=== PATIENT | male | born 1930 | race Caucasian/White ===

== ENCOUNTER 2017-11-06 15:55 | Inpatient (IN) | payer MEDICARE ==
[~2017-11-06] VITALS: Ht 177.8 cm; Wt 92.3 kg
--- NOTE | 2017-11-06 17:04 | Diagnostic Imaging Report ---
Portable chest x-ray CPT code 98604 INDICATION: Fall COMPARISON: None FINDINGS: Frontal view of the chest obtained at 1433 hours. There is a lucent rectangle-shaped artifact across the right chest and right mediastinum extending off the edge of the image. The cardiac silhouette is mildly enlarged with cardiac bypass changes. Pacemaker wires terminate in the right atrium and right ventricle.. The pulmonary vascular marking are normal. The lungs demonstrate no mass or infiltrate. An azygos lobe is present. The costophrenic angles are sharp. There is no pneumothorax. The osseous structures are intact. There is a fracture of the first median sternotomy wire counting down. IMPRESSION: 1. Compromised study due to artifact across the right hemithorax and mediastinum. 2. Postoperative changes consistent with cardiac bypass. Pacemaker as described above. Pulmonary hyperinflation. No acute pulmonary process. Signed by: Dr. Oz Farrar MD on 11/06/2017 5:01 PM
--- NOTE | 2017-11-06 17:28 | Diagnostic Imaging Report ---
Foot complete CPT code: 24028 Indication: Fall 2 days ago Technique: A.P., oblique and lateral views of the left foot obtained. Comparison: None Findings: The area of pain is not indicated or marked. Calcaneus is intact with prominent posterior and small plantar calcaneal spurs. The midfoot is intact. No evidence of displaced fracture or dislocation involving any of the digits. There are surgical clips along the medial malleolus suggestive of vascular surgery. IMPRESSION: No acute traumatic pathology by x-ray. Signed by: Dr. Oz Farrar MD on 11/06/2017 5:25 PM
--- NOTE | 2017-11-06 17:33 | Diagnostic Imaging Report ---
Foot complete CPT code: 97489 Indication: Fall 2 days ago Technique: A.P., oblique and lateral views of the right foot obtained. Comparison: None Findings: The area of pain is not indicated or marked. Calcaneus is intact with small posterior and plantar spurs. The midfoot is intact. There is a fracture through the tibial corner of the base of the proximal phalanx of the great toe extending to the articular surface. No significant displacement of the fracture fragments. The remainder of the digits are intact. No radiopaque foreign bodies in the soft tissues. There are atherosclerotic calcifications of the arterial structures. IMPRESSION: Fracture of the proximal phalanx of the first digit as described above. Signed by: Dr. Oz Farrar MD on 11/06/2017 5:29 PM
--- NOTE | 2017-11-06 18:04 | Diagnostic Imaging Report ---
Examination: CT BRAIN WITHOUT CONTRAST History: Fall. Head injury. Comparison studies:None Technique: Axial images were obtained from the skull base to the vertex. Coronal and sagittal images reconstructed from the axial data. Intravenous contrast: None Findings: Scalp: No abnormalities. Bones: No fractures, blastic or lytic lesions. Brain sulci: Moderate volume loss for age. Ventricles: No hydrocephalus. Extra-axial space: No abnormalities. Parenchyma: There are confluent areas of hypoattenuation in the periventricular and subcortical white matter, nonspecific. No masses or hemorrhage or acute cortical-based infarct. There is a cortical-based area of hypoattenuation involving the lingual gyrus of the right occipital lobe. Sellar/suprasellar region: No abnormalities. Craniocervical junction: Patent foramen magnum. No Chiari one malformation. Incidental findings: Atherosclerotic calcification of the cavernous and supraclinoid internal carotid arteries. Impression: 1. No acute intracranial abnormalities. 2. Moderate chronic microvascular ischemic change and volume loss. 3. 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 Signed by: Dr. Marie Ferraro M.D. on 11/06/2017 6:01 PM
--- NOTE | 2017-11-06 18:16 | Diagnostic Imaging Report ---
Examination: CT CERVICAL SPINE WITHOUT CONTRAST. HISTORY:Neck pain. Fall. COMPARISON:None. TECHNIQUE: Multidetector helical axial images were obtained without contrast from the foramen magnum to T1. Coronal and sagittal reformatted images were done. Bone and soft tissue windows were evaluated. FINDINGS: Alignment:Straightening of normal lordosis. Vertebrae: Normal height and density. No acute fracture, infection or neoplasm. Disc space heights: Normal height. Caliber of spinal canal: Developmentally normal. Posterior fossa and craniocervical junction: Foramen magnum patent. No Chiari 1 malformation. Soft tissues: No abnormality. Degenerative changes: Severe degenerative narrowing at the C1-C2 joint. Severe right facet arthropathy from C2 through C7 and mild left facet arthropathy at the same levels. Severe right foraminal narrowing at C2-C3, moderate right foraminal narrowing at C3-C4, C4-C5. The cervical levels demonstrate no disc bulge/ herniation or canal stenosis. Additional findings: Fluid in the right azygos fissure. IMPRESSION: 1. No acute abnormalities. 2. Degenerative changes, as above. 3. Fluid within the azygos fissure (right lung). Signed by: Dr. Marie Ferraro M.D. on 11/06/2017 6:12 PM
[2017-11-06 18:17] LABS: BASOPHILS % 0.3 % (0.0-1.0); EOSINOPHILS # (AUTO) 0.1 (0.0-0.4); EOSINOPHILS % 1.1 % (0.0-6.0); HEMATOCRIT 39.9 % (38.2-49.6); HEMOGLOBIN 13.4 g/dL (14.0-18.0); LYMPHOCYTES # (AUTO) 1.8 (1.0-3.2); LYMPHOCYTES % 14.1 % (18.0-39.1); MEAN CORPUSCULAR HEMOGLOBIN 32.2 pg (28-32); MEAN CORPUSCULAR HGB CONC 33.6 g/dL (31-35); MEAN CORPUSCULAR VOLUME 95.9 fL (81-99); MONOCYTES # (AUTO) 0.9 (0.2-0.8); MONOCYTES % 7.2 % (4.4-11.3); NEUTROPHILS # (AUTO) 9.6 (2.1-6.9); NEUTROPHILS % 76.9 % (38.7-80.0); PLATELET COUNT 216 x10e3/uL (140-360); RED BLOOD COUNT 4.16 x10e6/uL (4.3-5.7); RED CELL DISTRIBUTION WIDTH 13.5 % (11.7-14.4)
--- NOTE | 2017-11-06 18:19 | Diagnostic Imaging Report ---
Examination: CT LUMBAR SPINE WITHOUT CONTRAST History: Fall. Back pain. Comparison studies: None Technique: Axial images were obtained through the lumbar spine from L1. Coronal and sagittal reconstructions obtained from the axial data. Intravenous contrast: None Findings: The usual 5 non-rib bearing lumbar vertebral bodies are present. Alignment: Normal lordosis. No scoliosis. Soft tissues: Atherosclerotic calcification of the abdominal aorta and its branches. Paraspinal muscles: Mild fatty atrophy. Sacroiliac joints: Severe degenerative changes. Vertebrae: No fractures, infection or neoplasm. Degenerative changes: L1-L2: Diffuse disc bulge and mild bilateral facet arthropathy. No canal or foraminal stenosis. L2-L3: Diffuse disc bulge, ligamentum flavum thickening and bilateral facet arthropathy result in severe canal stenosis and mild bilateral neural foraminal narrowing . L3-L4: Diffuse disc bulge, ligamentum flavum thickening and bilateral facet arthropathy results in severe canal stenosis and mild left neural foraminal narrowing. No right foraminal narrowing. L4-L5: Diffuse disc bulge, mild ligamentum flavum thickening and bilateral facet arthropathy result in mild bilateral neural foraminal narrowing and mild canal stenosis. L5-S1: Diffuse disc bulge and the lateral facet arthropathy result in mild bilateral neural foraminal narrowing. No canal stenosis IMPRESSION: 1. No acute abnormalities. 2. Degenerative changes, as above. Signed by: Dr. Marie Ferraro M.D. on 11/06/2017 6:16 PM
[2017-11-06 18:25] LABS: KETONES,URINE NEGATIVE (NEGATIVE); LEUKOCYTE ESTERASE ,URINE NEGATIVE (NEGATIVE); NITRITE,URINE NEGATIVE (NEGATIVE); URINE UROBILINOGEN 0.2 mg/dL (0.2 - 1)
[2017-11-06 18:26] LABS: BILIRUBIN,URINE 1+ (NEGATIVE); CLARITY,URINE CLEAR (CLEAR); COLOR,URINE YELLOW (YELLOW); PROTEIN,URINE DIPSTICK TRACE (NEGATIVE)
--- NOTE | 2017-11-06 18:30 | Diagnostic Imaging Report ---
CT Pelvis Without IV Contrast INDICATION: Fall. TECHNIQUE: 5 mm collimation axial images obtained from the iliac crests to the symphysis pubis. No intravenous contrast was administered. COMPARISON: CT lumbar spine performed at the same time. Findings: Bowel: Small Bowel: Visualized portions are normal in diameter with normal wall thickness. Large Bowel: Visualized portions are normal in diameter with normal wall thickness. Appendix: Not visualized and may be absent or collapsed. Bladder: Under distended. No ureteral dilatation. The prostate gland measures 3.6 x 4.9 cm in the axial plane. There are calcifications of the vas deferens.. Lymph Nodes: No lymphadenopathy. No free fluid or fluid collection. There are diffuse atherosclerotic calcifications of the distal aorta and iliac arteries. Bones: Degenerative changes of the spine. No diastases of the pubic symphysis or sacroiliac joints. The hips are intact and normal in morphology. Soft tissues: There is a fat-containing left inguinal hernia. The left gluteus taylor is prominent compared to the right with overlying subcutaneous inflammation. An intramuscular hematoma is suspected. IMPRESSION: 1. Intramuscular hematoma of the left gluteus taylor. No evidence of osseous injury. 2. Intraperitoneal findings as described above. Signed by: Dr. Oz Farrar MD on 11/06/2017 6:27 PM
[2017-11-06 18:45] LABS: ALBUMIN 3.7 g/dL (3.5-5.0); ALBUMIN/GLOBULIN RATIO 0.9 (0.8-2.0); ANION GAP 14.7 mmol/L (8-16); CALCIUM 10.2 mg/dL (8.4-10.2); CREATININE, SERUM 1.77 mg/dL (0.72-1.25); POTASSIUM 3.7 mmol/L (3.5-5.1)
[2017-11-06 18:52] LABS: CREATINE KINASE MB 3.4 ng/mL (0.00-5.00); TROPONIN I 0.057 ng/mL (0-0.300)
[2017-11-06] MEDS ORDERED: ATORVASTATIN CA40 MG PO (19:00)
[2017-11-06] MEDS ORDERED: DESONIDE15 GM TOP (19:00)
[2017-11-06] MEDS ORDERED: KETOCONAZOLE120 ML (19:00)
[2017-11-06] MEDS ORDERED: FLUOCINONIDE-E15 GM (19:00)
[2017-11-06] MEDS ORDERED: ROPINIROLE HC0.25 MG PO (19:00)
[2017-11-06] MEDS ORDERED: CALCIUM CARBON500 MG PO (19:00)
[2017-11-06] MEDS ORDERED: ASPIR 8181 MG PO (19:00)
[2017-11-06] MEDS ORDERED: VITAMIN D400 UNIT PO (19:00)
[2017-11-06] MEDS ORDERED: MELATONIN3 MG PO (19:00)
[2017-11-06] MEDS ORDERED: ARICEPT5 MG PO (19:00)
[2017-11-06] MEDS ORDERED: ALLOPURINOL100 MG PO (19:00)
[2017-11-06] MEDS ORDERED: OMEPRAZOLE40 MG PO (19:00)
[2017-11-06] MEDS ORDERED: BASLE60 GM (19:00)
[2017-11-06] MEDS ORDERED: FUROSEMIDE40 MG PO (19:00)
[2017-11-06] MEDS ORDERED: BUDESONIDE0.5 MG/2 M NEB (19:00)
[2017-11-06] MEDS ORDERED: LORATADINE10 MG PO (19:00)
[2017-11-06] MEDS ORDERED: CLOPIDOGREL75 MG PO (19:00)
[2017-11-06] MEDS ORDERED: POTASSIUM CHLO10 ME1 PO (19:00)
[2017-11-06] MEDS ORDERED: METOPROLOL SUCC50 MG PO (19:00)
[2017-11-06] MEDS ORDERED: MULTI-VITAMIN1 EACH PO (19:00)
[2017-11-06] MEDS ORDERED: MIRTAZAPINE15 MG PO (19:00)
[2017-11-06] MEDS ORDERED: KETOCONAZOLE15 GM (19:00)
[2017-11-06 19:54] LABS: INR 0.95; PROTHROMBIN TIME 13.1 seconds (11.9-14.5)
[2017-11-06 19:55] LABS: PARTIAL THROMBOPLASTIN TIME 31.9 seconds (23.8-35.5)
[2017-11-06] MEDS ORDERED: PIPERACILLIN/TAZO 2.25 GM 50 ML IV SCH (20:15)
[2017-11-06] MEDS ORDERED: TETANUS/DIPHTHERIA TOX ADULT 0.5 ML SYR IM ONE (20:15)
[2017-11-06] MEDS ORDERED: LACTATED RINGER'S 500 ML IV ONE (20:15)
[2017-11-06] MEDS ORDERED: LACTATED RINGER'S 1,000 ML ONE (20:22)
[2017-11-06] MEDS ORDERED: MIRTAZAPINE 15 MG TAB PO SCH (21:00)
[2017-11-06] MEDS: MUPIROCIN 2% OINT 22 GM TUBE TOP SCH (21:08)
[2017-11-06] MEDS ORDERED: MORPHINE SULFATE 2 MG/ML SYR IV PRN (21:30)
[2017-11-06] MEDS ORDERED: ONDANSETRON HCL INJ 2 MG/ML VIAL IV PRN (21:30)
[2017-11-06] MEDS ORDERED: DEXTROSE 50% SYRINGE 50 ML IV PRN (22:15)
[2017-11-06 22:16] VITALS: BP 139/63
[2017-11-06 22:35] VITALS: BP 139/63
[2017-11-06] MEDS: SOD CHL 0.45%/POT CHL 20MEQ 1,000 ML IV SCH (22:55)
[2017-11-06] MEDS: ATORVASTATIN 40 MG TAB PO SCH (23:23)
[2017-11-06] MEDS: MELATONIN 3 MG TAB PO SCH (23:23)
[2017-11-06] MEDS: DONEPEZIL HCL 5 MG TAB PO SCH (23:23)
[2017-11-06] MEDS: ROPINIROLE HCL 0.25 MG TAB PO SCH (23:23)
[2017-11-07] VITALS: BP 130/67
[2017-11-07] MEDS: PIPERACILLIN/TAZO 2.25 GM 50 ML IV SCH ×4 (02:25→18:25)
[2017-11-07] MEDS ORDERED: CALCIUM CITRAT200 MG PO (02:47)
[2017-11-07] MEDS ORDERED: ALBUTEROL0.63 MG/3 (02:47)
[2017-11-07] MEDS ORDERED: TRIAMCINOLONE A15 G2 (02:47)
[2017-11-07] MEDS ORDERED: SPIRIVA18 MCG INH (02:47)
[2017-11-07 04:00] VITALS: BP 150/67
[2017-11-07 07:03] LABS: BASOPHILS % 0.3 % (0.0-1.0); EOSINOPHILS # (AUTO) 0.3 (0.0-0.4); EOSINOPHILS % 2.6 % (0.0-6.0); HEMATOCRIT 36.1 % (38.2-49.6); LYMPHOCYTES # (AUTO) 1.6 (1.0-3.2); LYMPHOCYTES % 15.3 % (18.0-39.1); MEAN CORPUSCULAR HEMOGLOBIN 32.2 pg (28-32); MEAN CORPUSCULAR HGB CONC 33.2 g/dL (31-35); MEAN CORPUSCULAR VOLUME 96.8 fL (81-99); MONOCYTES # (AUTO) 0.9 (0.2-0.8); MONOCYTES % 8.2 % (4.4-11.3); NEUTROPHILS # (AUTO) 7.6 (2.1-6.9); NEUTROPHILS % 73.3 % (38.7-80.0); PLATELET COUNT 193 x10e3/uL (140-360); RED BLOOD COUNT 3.73 x10e6/uL (4.3-5.7); RED CELL DISTRIBUTION WIDTH 13.5 % (11.7-14.4)
[2017-11-07 07:19] LABS: ALBUMIN 3.1 g/dL (3.5-5.0); ALBUMIN/GLOBULIN RATIO 0.8 (0.8-2.0); ANION GAP 11.5 mmol/L (8-16); CALCIUM 9.5 mg/dL (8.4-10.2); CHOL/HDL RATIO 3.7 (3.9-4.7); CREATININE, SERUM 1.52 mg/dL (0.72-1.25); POTASSIUM 3.5 mmol/L (3.5-5.1)
[2017-11-07 07:48] LABS: TROPONIN I 0.031 ng/mL (0-0.300)
[2017-11-07 08:00] VITALS: BP 127/62
[2017-11-07] MEDS: INSULIN REGULAR, HUMAN 100 UNIT/1 ML 3ML VIAL SQ SCH ×4 (08:00→21:00)
[2017-11-07] MEDS: FAMOTIDINE 20 MG/2 ML VIAL IV SCH ×2 (08:39→21:18)
[2017-11-07] MEDS: MUPIROCIN 2% OINT 22 GM TUBE TOP SCH ×2 (09:00→17:00)
[2017-11-07] MEDS ORDERED: ALBUTEROL SULF 0.083% NEB SOLN 3 ML NEB NEB PRN (09:00)
[2017-11-07] MEDS: SOD CHL 0.45%/POT CHL 20MEQ 1,000 ML IV SCH (10:50)
[2017-11-07] MEDS: ALBUTEROL SULF 0.083% NEB SOLN 3 ML NEB NEB SCH ×3 (11:00→19:20)
[2017-11-07] MEDS ORDERED: VANCOMYCIN 1GM/NS 250 ML 250 ML IV ONE (11:00)
[2017-11-07 12:00] VITALS: BP 131/59
--- NOTE | 2017-11-07 12:27 | History and Physical ---
Patient admitted through the emergency room. Apparently had nausea, vomiting and diarrhea related to poorly cooked potatoes in a stew. Fell at home and apparently brought a bookcase on top or credenza on top of him. Family thinks he was on the floor for approximately 3 days. He has a history of dementia, history of coronary disease, history of COPD, recently on home oxygen, bypass surgery 23 years ago, history of coronary stents and a history of a pacemaker. Family history is positive for diabetes and cancer of the lung. He has had cataract surgery in addition to his bypass surgery. He was born in [place]. Worked installing [employer]. He is an ex-smoker. Drinks on occasion. CLAIMS HE IS ALLERGIC TO FLU VACCINE AND BRETYLIUM. According to record, his home medications include albuterol, allopurinol, aspirin, Lipitor, budesonide, calcium, vitamin D, Plavix, Aricept, steroid cream, Lasix, ketoconazole shampoo, loratadine, melatonin, metoprolol, Remeron, omeprazole, potassium, ropinirole, and Spiriva as well as his supplemental oxygen. PHYSICAL EXAMINATION VITAL SIGNS: Temperature 96.9, pulse 70, respirations 15, blood pressure 150/ , O2 saturation 97%. HEAD: Normocephalic, atraumatic. EYES: There is bruising left eyelid. LUNGS: Diminished breath sounds. HEART: Regular rhythm. ABDOMEN: Nontender. EXTREMITIES: Wound great toe with laceration and bruising 2nd toe and 3rd toe left foot. Swelling of the toe. Family says this is improved. Request cardiology opinion and renal opinion, orthopedic opinion. He is currently on empiric antibiotics. We will add 1 dose of vancomycin. Renal failure is most likely due to the dehydration. CPK is only moderately elevated. Glucose was slightly elevated. Uric acid 9.6. CPK 624. Continue therapy for dementia. Will increase dose of allopurinol. Thank you for this kind referral. Job#: [id number] JOSEPH
[2017-11-07] MEDS: CLOPIDOGREL BISULFATE 75 MG TAB PO SCH (15:08)
[2017-11-07] MEDS: LORATADINE 10 MG TAB PO SCH (15:09)
[2017-11-07] MEDS: METOPROLOL SUCCINATE 50 MG TAB XL PO SCH (15:09)
[2017-11-07] MEDS: TIOTROPIUM 18 MCG INH POWDER INH SCH (15:25)
[2017-11-07 16:00] VITALS: BP 101/49
[2017-11-07 16:10] LABS: CREATINE KINASE MB 1.5 ng/mL (0.00-5.00); TROPONIN I 0.033 ng/mL (0-0.300)
--- NOTE | 2017-11-07 16:56 | Consultation ---
DATE OF CONSULTATION: November 07, 2017 CARDIOLOGY CONSULTATION ATTENDING PHYSICIAN: Dr. Prabhakar. Thank you so much for asking me to see this nice man in consultation. Mr. nAne is an elderly 87-year-old man who reports that he fell at home, trying to support himself by holding on to a bookcase, and evidently it trapped him under the bookcase and he lay on the floor for 2 days. He reports "almost froze to ." HISTORY OF PRESENT ILLNESS: He denies any syncope, chest pain or palpitations. PAST MEDICAL HISTORY: Long and complex with coronary artery bypass graft surgery about 20 years or so ago. He has had a permanent pacemaker implant and reports that it has been replaced 2 more times. He reports he also has had some coronary stenting since his bypass. He has COPD. He has an extensive list of medications. Please see the chart. REVIEW OF SYSTEMS: GENERAL: He is a relatively poor historian and evidently has some element of dementia. ENDOCRINE: He has diabetes. PERSONAL AND SOCIAL HISTORY: Has remote smoking, and he lives alone. PHYSICAL EXAMINATION: GENERAL: At this time shows a pleasant elderly white man who is alert, responsive, relatively oriented. Family sitting at bedside. VITALS: Afebrile. Blood pressure 127/62. Pulse is 70 and regular. HEENT: Shows left periorbital purpura. NECK: No jugular venous distention. THORAX: A healed midline sternotomy. Heart sounds S1 and S2 are equal. No distinct murmur. Left subclavian pacemaker site is intact. Lungs relatively clear. ABDOMEN: Protuberant. EXTREMITIES: Show the right great toe purpura and bandage. PERTINENT LABORATORY DATA: Show troponins normal times 2. Initial serum creatinine is 1.77 with the repeat value being 1.5. CT of the head shows right chronic posterior infarct. EKG shows ventricular pacing, possibly atrial fibrillation. X-rays of bones and CAT scans show a hematoma in the left gluteus taylor, a fracture of the right proximal phalanx on the right foot, and lumbar spine shows multiple disk bulges and stenoses. ASSESSMENT: 1. Fall with fracture of the right foot. 2. Coronary disease clinically stable after coronary bypass graft surgery and stenting. 3. Pacemaker function is intact. 4. Renal insufficiency. 5. Diabetes. PLAN: Agree with supportive care. Will limit my investigations as he is followed regularly at the [facility]. Thank you for asking me to see him in consultation. Job#: [id number] EV cc:MD SAMEER COBIAN M.D. JIRIES DAHU, MD
[2017-11-07] MEDS: ENOXAPARIN SOD INJ 40 MG/0.4 ML SYR SC SCH (17:25)
[2017-11-07] MEDS: KETOCONAZOLE 2% CREAM/15 GM TUBE TOP SCH ×2 (18:56→22:44)
[2017-11-07] MEDS: BUDESONIDE 0.5MG/2 ML NEB NEB SCH (19:20)
[2017-11-07 20:00] VITALS: BP 114/62
[2017-11-07] MEDS: MELATONIN 3 MG TAB PO SCH (21:18)
[2017-11-07] MEDS: ATORVASTATIN 40 MG TAB PO SCH (21:18)
[2017-11-07] MEDS: DONEPEZIL HCL 5 MG TAB PO SCH (21:18)
[2017-11-07] MEDS: MIRTAZAPINE 15 MG TAB PO SCH (21:18)
[2017-11-07] MEDS: ROPINIROLE HCL 0.25 MG TAB PO SCH (21:20)
--- NOTE | 2017-11-07 22:25 | Consultation ---
DATE OF CONSULTATION: DATE OF : 1930 NEPHROLOGY CONSULTATION REASON FOR CONSULTATION: Acute kidney injury likely due to underlying dehydration. HPI: This is an 87-year-old male, who came in with found to be down on the ground in which he lives alone and family member found him on the ground and has a fracture of the proximal phalanx of the 1st digit of the big toe. Patient reports that he tripped on the ground 2 days ago. Patient was apparently down on the ground for 2 days and has not eaten or has not drank any fluids at home. Family, eventually, found him on the ground and brought him here to the ER for further evaluation. Patient does have a discoloration of the right big toe, as well as he has a bruise on his left upper eye. Patient denies any chest pain, palpitation, nausea, vomiting or any other complaints, when this occurred. Patient seen and evaluated at bedside on the medical floor. Currently doing well with no other complaints. Nephrology was consulted for underlying acute kidney injury likely due to dehydration. Patient denies any herbal supplements, [id number] medications including NSAIDs at home. He denies any family history of renal failure or any kidney disease, as well as no kidney stones. Denies any chronic UTI and denies any BPH. REVIEW OF SYSTEMS: Pertinent positives: Recent fall, fracture of the right big toe. Pertinent negatives: Denies any chest pain, palpitations, nausea, vomiting, diarrhea, dysuria, hematuria, frequency, urgency, lightheadedness, dizziness, abdominal pain, headache, shortness of breath or any other complaint. The rest of the 14-point review of systems has been reviewed with the patient and are negative. ALLERGIES 1. INFLUENZA VACCINE. 2. BRETYLIUM. HOME MEDICATIONS: He takes 1. Albuterol. 2. Allopurinol 100 mg daily. 3. Aspirin 81 mg daily. 4. Lipitor 40 mg daily. 5. Budesonide inhaler twice daily. 6. Calcium citrate 200 mg daily. 7. Folic acid 400 units capsules daily. 8. Plavix 75 mg daily. 9. Aricept 10 mg daily. 10. Furosemide 80 mg daily. 11. Loratadine 10 mg daily. 12. Melatonin 6 mg p.o. at bedtime. 13. Metoprolol ER 50 mg one tab daily. 14. Mirtazapine 15 mg daily. 15. Omeprazole 20 mg daily. 16. Spiriva 18 mcg inhaled daily. 17. Ropinirole 0.5 mg at bedtime. PAST MEDICAL HISTORY 1. He has restless legs syndrome. 2. Hypertension. 3. Hyperlipidemia. 4. Diabetes. PAST SURGICAL HISTORY 1. Cataract surgery. 2. Bypass surgery. FAMILY HISTORY: Diabetes and cancer of the lung. SOCIAL HISTORY: Ex-smoker. Drinks occasionally. 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 VITAL SIGNS: Temperature is 96, pulse 69, respiratory rate is 18, blood pressure is 131/59. His pulse ox is 100% on 2 L nasal cannula. LAB FINDINGS: Sodium 137, potassium 3.5, chloride 100, bicarb 29, anion gap of 11.5, BUN is 33, creatinine is 1.5, on admission is 1.77. His glucose is 145. T-bili is 1.2, AST 68, ALT is 33. His troponin is negative. CK is 343, on admission was 627. His albumin is 3.1. LDL is 82. His urinalysis is negative. His microbiology, urine culture pending. IMAGING STUDIES: CT of the pelvis showed just some intramuscular hematoma of the left gluteus taylor, but there is no evidence of any kind of fracture seen. Lumbar CT, no acute abnormality. Foot x-ray negative. Foot x-ray of the right foot showed fracture of the proximal phalanx and the 1st digit. Chest x-ray, no acute pulmonary process. CT of cervical spine was negative for any acute findings and then, CT of brain negative for any acute findings. PHYSICAL EXAM GENERAL: Not in acute distress. Alert, oriented times 3. Cooperative on exam. HEENT: Head normocephalic, atraumatic. Eyes: Pupils are equal, round, and reactive to light bilaterally. Extraocular movements intact bilaterally. NECK: Supple with good range of motion. Throat: No evidence of any erythema or exudate in the posterior pharynx. Has poor dentition. PULMONARY: Clear to auscultation bilaterally. No wheezing. No rales and rhonchi. No crackles appreciated. CARDIOVASCULAR: Positive S1/S2. No murmurs, rubs or gallops appreciated. ABDOMEN: Soft, nondistended, nontender to palpation. Bowel sounds present. MUSCULOSKELETAL: Strength is 5/5 throughout. No evidence of any musculoskeletal deficit on examination. No weakness appreciated. NEUROLOGIC: Cranial nerves II through XII grossly intact. No neurological deficit on exam. SKIN: Intact. Warm to touch. Good cap refill. PSYCHIATRIC: Normal affect and mood. EXTREMITIES: He has fracture of the right big toe. IMPRESSIONS 1. Acute kidney injury likely prerenal azotemia from dehydration. 2. Rhabdomyolysis. 3. Right big toe fracture. 4. History of coronary stents with history of pacemaker. PLAN: At this time, continue with IV fluid hydration. CK has improved. Repeat CK in the morning. Will get renal ultrasound to evaluate for kidney size and chronicity of disease. No need for any kind of electrolyte at this time. It seems the patient also has underlying chronic disease at baseline. Will continue to follow. Thank you very much for this consultation. Will continue to follow with you. Job#: [id number] CQ
[2017-11-07] MEDS ORDERED: HALOPERIDOL 5 MG TAB PO PRN (23:15)
[2017-11-07] MEDS ORDERED: HALOPERIDOL 1 MG TAB PO ONE (23:47)
[2017-11-08] MEDS: SOD CHL 0.45%/POT CHL 20MEQ 1,000 ML IV SCH (00:10)
[2017-11-08] MEDS: TIOTROPIUM 18 MCG INH POWDER INH SCH (06:00)
[2017-11-08] MEDS: PIPERACILLIN/TAZO 2.25 GM 50 ML IV SCH ×3 (06:00→12:00)
[2017-11-08] MEDS: ALBUTEROL SULF 0.083% NEB SOLN 3 ML NEB NEB SCH ×3 (07:00→19:45)
[2017-11-08] MEDS: BUDESONIDE 0.5MG/2 ML NEB NEB SCH ×2 (07:00→19:45)
[2017-11-08] MEDS: INSULIN REGULAR, HUMAN 100 UNIT/1 ML 3ML VIAL SQ SCH ×4 (07:30→21:00)
[2017-11-08] MEDS: MUPIROCIN 2% OINT 22 GM TUBE TOP SCH ×3 (09:00→16:45)
[2017-11-08] MEDS: FAMOTIDINE 20 MG/2 ML VIAL IV SCH (09:00)
[2017-11-08] MEDS ORDERED: ALLOPURINOL 100 MG TAB PO SCH ×2 (09:00)
[2017-11-08] MEDS: METOPROLOL SUCCINATE 50 MG TAB XL PO SCH (09:26)
[2017-11-08] MEDS: ASPIRIN 81 MG CHEW TAB PO SCH (09:26)
[2017-11-08] MEDS: LORATADINE 10 MG TAB PO SCH (09:26)
[2017-11-08] MEDS: POTASSIUM CHLORIDE 10 MEQ TABCR PO SCH (09:26)
[2017-11-08] MEDS: CLOPIDOGREL BISULFATE 75 MG TAB PO SCH (09:26)
[2017-11-08] MEDS: FUROSEMIDE 40 MG TAB PO SCH (09:26)
[2017-11-08] MEDS: MULTIVITAMINS/MINERALS TAB PO SCH (09:26)
[2017-11-08] MEDS: CHOLECALCIFEROL 400 UNIT TAB PO SCH (09:27)
[2017-11-08] MEDS: PANTOPRAZOLE SOD 40 MG TABEC PO SCH (09:27)
[2017-11-08 10:03] LABS: BASOPHILS % 0.4 % (0.0-1.0); EOSINOPHILS # (AUTO) 0.4 (0.0-0.4); EOSINOPHILS % 4.8 % (0.0-6.0); HEMATOCRIT 33.6 % (38.2-49.6); HEMOGLOBIN 11.2 g/dL (14.0-18.0); LYMPHOCYTES # (AUTO) 1.4 (1.0-3.2); LYMPHOCYTES % 18.3 % (18.0-39.1); MEAN CORPUSCULAR HEMOGLOBIN 32.5 pg (28-32); MEAN CORPUSCULAR HGB CONC 33.3 g/dL (31-35); MEAN CORPUSCULAR VOLUME 97.4 fL (81-99); MONOCYTES # (AUTO) 0.5 (0.2-0.8); MONOCYTES % 6.3 % (4.4-11.3); NEUTROPHILS # (AUTO) 5.2 (2.1-6.9); PLATELET COUNT 178 x10e3/uL (140-360); RED BLOOD COUNT 3.45 x10e6/uL (4.3-5.7); RED CELL DISTRIBUTION WIDTH 13.6 % (11.7-14.4)
[2017-11-08 10:28] LABS: ANION GAP 12.4 mmol/L (8-16); CALCIUM 9.2 mg/dL (8.4-10.2); CREATININE, SERUM 1.4 mg/dL (0.72-1.25); POTASSIUM 3.4 mmol/L (3.5-5.1)
--- NOTE | 2017-11-08 14:22 | Diagnostic Imaging Report ---
PROCEDURE:US RETROPERITONEAL ( KIDNEY ). COMPARISON:None. INDICATIONS:Urethral Stricture TECHNIQUE: Richard-scale and color sonographic images of the bilateral kidneys and bladder where obtained in transverse and longitudinal planes. FINDINGS: RIGHT KIDNEY: 9.6 cm in length, cortical thickness 1.7 cm. Cysts: None Solid masses: None Stones: None Hydronephrosis: None Echogenicity: Normal renal cortical echogenicity. LEFT KIDNEY: 11 cm in length, cortical thickness 2.1 cm. Cysts: None Solid masses: None Stones: None Hydronephrosis: None Echogenicity: Normal renal cortical echogenicity. Bladder: Unremarkable. Right and left ureteral jets are identified. Prostate: 3.2 x 3.1 x 5.3 cm, estimated volume 26 cc CONCLUSION: Unremarkable sonographic appearance of the kidneys. Dictated by: Brenton Snyder M.D. on 11/08/2017 at 14:30 Electronically approved by: Brenton Snyder M.D. on 11/08/2017 at 14:30
[2017-11-08] MEDS ORDERED: AMOXICILLIN875 MG PO (14:34)
[2017-11-08] MEDS ORDERED: POTASSIUM CHLORIDE 20 MEQ TAB CR PO PRN (14:45)
[2017-11-08 16:00] VITALS: BP 147/67
[2017-11-08] MEDS: BALSAM PERU/CASTOR OIL 60 GM OINT...G. TP SCH (17:00)
[2017-11-08] MEDS: ENOXAPARIN SOD INJ 40 MG/0.4 ML SYR SC SCH (17:28)
[2017-11-08 20:00] VITALS: BP 144/64
[2017-11-08] MEDS: DONEPEZIL HCL 5 MG TAB PO SCH (21:04)
[2017-11-08] MEDS: AMOXICILLIN/CLAVULANATE K 875 MG TAB PO SCH (21:04)
[2017-11-08] MEDS: ATORVASTATIN 40 MG TAB PO SCH (21:05)
[2017-11-08] MEDS: ROPINIROLE HCL 0.25 MG TAB PO SCH (21:05)
[2017-11-08] MEDS: MELATONIN 3 MG TAB PO SCH (21:05)
[2017-11-08] MEDS: MIRTAZAPINE 15 MG TAB PO SCH (21:05)
[2017-11-08] MEDS: FAMOTIDINE 20 MG TAB PO SCH (22:38)
[2017-11-09] VITALS: BP 153/68
[2017-11-09] MEDS: TIOTROPIUM 18 MCG INH POWDER INH SCH (06:00)
[2017-11-09] MEDS: ALBUTEROL SULF 0.083% NEB SOLN 3 ML NEB NEB SCH ×3 (07:21→15:00)
[2017-11-09] MEDS: BUDESONIDE 0.5MG/2 ML NEB NEB SCH (07:30)
[2017-11-09 08:23] VITALS: BP 143/79
[2017-11-09] MEDS ORDERED: ALLOPURINOL 300 MG TAB PO SCH (09:00)
[2017-11-09] MEDS: INSULIN REGULAR, HUMAN 100 UNIT/1 ML 3ML VIAL SQ SCH ×3 (09:30→15:54)
[2017-11-09] MEDS: CLOPIDOGREL BISULFATE 75 MG TAB PO SCH (09:33)
[2017-11-09] MEDS: FUROSEMIDE 40 MG TAB PO SCH (09:33)
[2017-11-09] MEDS: LORATADINE 10 MG TAB PO SCH (09:33)
[2017-11-09] MEDS: ASPIRIN 81 MG CHEW TAB PO SCH (09:33)
[2017-11-09] MEDS: POTASSIUM CHLORIDE 10 MEQ TABCR PO SCH (09:34)
[2017-11-09] MEDS: CHOLECALCIFEROL 400 UNIT TAB PO SCH (09:34)
[2017-11-09] MEDS: PANTOPRAZOLE SOD 40 MG TABEC PO SCH (09:34)
[2017-11-09] MEDS: MULTIVITAMINS/MINERALS TAB PO SCH (09:34)
[2017-11-09] MEDS: METOPROLOL SUCCINATE 50 MG TAB XL PO SCH (09:34)
[2017-11-09] MEDS: FAMOTIDINE 20 MG TAB PO SCH ×2 (09:35→16:12)
[2017-11-09] MEDS ORDERED: POTASSIUM CHLORIDE 20 MEQ TAB CR PO STA (10:20)
--- NOTE | 2017-11-09 10:47 | Discharge Summary ---
Patient usually follows at the [facility] and was admitted to Dr. Prabhakar through the emergency room with a history of fall. Apparently, a credenza fell on him. He laid on the floor for approximately 3 days. Fractured the right great toe and bruising of the eyelid and some minor lacerations to 2 toes on the left foot. He has a history of coronary disease with bypass surgery, history of diabetes, history of smoking, history of alcohol use on occasion. He quit smoking at this time. He was treated with Zosyn for superficial skin infection with 1 dose of vancomycin. He was treated with allopurinol. The dose was increased because of uric acid level of 9.6. SNF was recommended. The patient's family declined. They said that they will take him home and supervise him 24 hours. His white count fell to 12.46. There is apparent anemia of chronic disease. Renal function was compromised. Creatinine of 1.4. The patient has a walker. He will need a bedside commode. Home health was declined. He was able to ambulate with his walker. His balance is poor. He is discharged to the care of the family. He has home oxygen and is encouraged to use this. He declined IV therapy. He was placed on: 1. Augmentin 500 mg b.i.d. 2. Allopurinol 300 mg at night. 3. Aspirin 81 mg. 4. Lipitor 40 mg. 5. Continue Pulmicort. 6. Vitamin D. 7. Plavix. 8. Aricept. 9. Pepcid. 10. Lasix 80 mg. 11. Ketoconazole shampoo. 12. Claritin. 13. Melatonin at night. 14. Metoprolol 50 mg a day. 15. Remeron 15 at night. 16. Potassium 10. 17. Requip 0.5. 18. Spiriva once a day. 19. ADA diet. JAYY FERMIN MD Job#: [id number] [place]
[2017-11-09] MEDS ORDERED: ACETAMINOPHEN 325 MG TAB PO PRN (11:00)
[2017-11-09] MEDS: AMOXICILLIN/CLAVULANATE K 875 MG TAB PO SCH (11:27)
[2017-11-09 11:53] VITALS: BP 164/72
[2017-11-09] MEDS: MUPIROCIN 2% OINT 22 GM TUBE TOP SCH (12:23)
[2017-11-09] MEDS: BALSAM PERU/CASTOR OIL 60 GM OINT...G. TP SCH ×2 (12:23→16:12)
[2017-11-09] MEDS: ENOXAPARIN SOD INJ 40 MG/0.4 ML SYR SC SCH (16:12)
[2017-11-09 16:25] VITALS: BP 158/70
[2017-11-09] MEDS ORDERED: FAMOTIDINE 20 MG TAB PO SCH (21:00)
[2017-11-10] MEDS ORDERED: MUPIROCIN 2% OINT 22 GM TUBE TOP SCH (02:00)
== END 2017-11-09 18:03 | disposition home or self-care (01) | DRG 558 ==
LOC: ER 15:55 → ERHOLD 21:41 → MED/SURG2 21:49
PROVIDERS: ADMIT Internal Medicine; ATTEND Internal Medicine
DX: M62.82 Rhabdomyolysis (principal); N17.9 Acute kidney failure, unspecified; L89.152 Pressure ulcer of sacral region, stage 2; E11.22 Type 2 diabetes mellitus with diabetic chronic kidney disease; Z99.81 Dependence on supplemental oxygen; D63.8 Anemia in other chronic diseases classified elsewhere; E86.0 Dehydration; S92.411A Displaced fracture of proximal phalanx of right great toe, initial encounter for closed fracture; F03.90 Unspecified dementia, unspecified severity, without behavioral disturbance, psychotic disturbance, mood disturbance, and anxiety; I12.9 Hypertensive chronic kidney disease with stage 1 through stage 4 chronic kidney disease, or unspecified chronic kidney disease; I25.10 Atherosclerotic heart disease of native coronary artery without angina pectoris; J44.9 Chronic obstructive pulmonary disease, unspecified; M10.9 Gout, unspecified; K21.9 Gastro-esophageal reflux disease without esophagitis; N18.9 Chronic kidney disease, unspecified; Z95.0 Presence of cardiac pacemaker; Z95.1 Presence of aortocoronary bypass graft; Z95.5 Presence of coronary angioplasty implant and graft; Y92.009 Unspecified place in unspecified non-institutional (private) residence as the place of occurrence of the external cause; W19.XXXA Unspecified fall, initial encounter; Z87.891 Personal history of nicotine dependence; Z79.4 Long term (current) use of insulin
CPT/HCPCS: 36415; 70450; 71010; 72125; 72131; 72192; 76770; 80048; 80053; 80061; 81001; 82550; 82553; 82948; 84484; 84550; 85025; 85610; 85730; 87086; 90714; 93005; 96361; 96365; 97139; 99284; J1650; J2270; J2543; J3370; J7120

== ENCOUNTER → 2017-12-01 | Outpatient (CLI) | payer OTHER ==
[~2017-12-01] MED LIST: ALBUTEROL0.63 MG/3; ALLOPURINOL100 MG PO; AMOXICILLIN875 MG PO; ARICEPT5 MG PO; ASPIR 8181 MG PO; ATORVASTATIN CA40 MG PO; BASLE60 GM; BUDESONIDE0.5 MG/2 M NEB; CALCIUM CARBON500 MG PO; CALCIUM CITRAT200 MG PO; CLOPIDOGREL75 MG PO; DESONIDE15 GM TOP; FLUOCINONIDE-E15 GM; FUROSEMIDE40 MG PO; KETOCONAZOLE120 ML; KETOCONAZOLE15 GM; LORATADINE10 MG PO; MELATONIN3 MG PO; METOPROLOL SUCC50 MG PO; MIRTAZAPINE15 MG PO; MULTI-VITAMIN1 EACH PO; OMEPRAZOLE40 MG PO; POTASSIUM CHLO10 ME1 PO; ROPINIROLE HC0.25 MG PO; SPIRIVA18 MCG INH; TRIAMCINOLONE A15 G2; VITAMIN D400 UNIT PO
[2017-12-01 15:57] LABS: ANION GAP 16.3 mmol/L (8-16); CALCIUM 9.5 mg/dL (8.4-10.2); CREATININE, SERUM 1.22 mg/dL (0.72-1.25); POTASSIUM 4.3 mmol/L (3.5-5.1)
[2017-12-01 16:00] LABS: BASOPHILS % 0.4 % (0.0-1.0); EOSINOPHILS # (AUTO) 0.4 (0.0-0.4); EOSINOPHILS % 4.4 % (0.0-6.0); HEMATOCRIT 40.9 % (38.2-49.6); HEMOGLOBIN 13.5 g/dL (14.0-18.0); LYMPHOCYTES # (AUTO) 1.6 (1.0-3.2); LYMPHOCYTES % 20.1 % (18.0-39.1); MEAN CORPUSCULAR HEMOGLOBIN 32.8 pg (28-32); MEAN CORPUSCULAR VOLUME 99.5 fL (81-99); MONOCYTES # (AUTO) 0.5 (0.2-0.8); MONOCYTES % 6.5 % (4.4-11.3); NEUTROPHILS # (AUTO) 5.5 (2.1-6.9); NEUTROPHILS % 68.4 % (38.7-80.0); PLATELET COUNT 245 x10e3/uL (140-360); RED BLOOD COUNT 4.11 x10e6/uL (4.3-5.7); RED CELL DISTRIBUTION WIDTH 14.2 % (11.7-14.4)
== END ==
LOC: NPA 12:00
DX: Z02.89 Encounter for other administrative examinations (principal)
CPT/HCPCS: 36415; 80048; 85025

== ENCOUNTER → 2017-12-12 | Outpatient (CLI) | payer OTHER ==
[2017-12-12 17:39] LABS: BASOPHILS % 0.3 % (0.0-1.0); EOSINOPHILS % 0.3 % (0.0-6.0); HEMATOCRIT 29.6 % (38.2-49.6); HEMOGLOBIN 9.4 g/dL (14.0-18.0); LYMPHOCYTES # (AUTO) 1.3 (1.0-3.2); LYMPHOCYTES % 11.6 % (18.0-39.1); MEAN CORPUSCULAR HEMOGLOBIN 27.7 pg (28-32); MEAN CORPUSCULAR HGB CONC 31.8 g/dL (31-35); MEAN CORPUSCULAR VOLUME 87.3 fL (81-99); MONOCYTES # (AUTO) 0.9 (0.2-0.8); MONOCYTES % 8.3 % (4.4-11.3); NEUTROPHILS # (AUTO) 8.8 (2.1-6.9); NEUTROPHILS % 79.1 % (38.7-80.0); PLATELET COUNT 355 x10e3/uL (140-360); RED BLOOD COUNT 3.39 x10e6/uL (4.3-5.7); RED CELL DISTRIBUTION WIDTH 16.1 % (11.7-14.4)
== END ==
LOC: NPA 11:30
DX: Z02.89 Encounter for other administrative examinations (principal)
CPT/HCPCS: 36415; 85025

== ENCOUNTER 2017-12-15 13:52 | Emergency (ER) | payer MEDICARE ==
[~2017-12-15] VITALS: Ht 177.8 cm; Wt 92.1 kg
--- OUTSIDE RECORDS SUMMARY | 2017-12-15 13:55 | XMS REPORT ---
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 Allergies, Adverse Reactions, Alerts This patient has no known allergies or adverse reactions. Medications This patient has no known medications. Results Test Description Test Time Test Comments Text Results Atomic Results Result Comments US RENAL RETROPERITONEAL COMP [place] [address] Patient Name: JHOAN JAY MR #: [id number] : 1930 Age/Sex: 87/M Req #: [id number] Adm Physician: SAMEER MARTINES MD Ordered by : MILTON LITTLE MD Report #: [id number] Location: MED/SURG2 Room/Bed: [facility] Procedure: [id number] US/US RENAL RETROPERITONEAL COMP Exam Date: Exam Time: REPORT STATUS: Signed PROCEDURE: US RETROPERITONEAL ( KIDNEY ). COMPARISON: None. INDICATIONS: Urethral Stricture TECHNIQUE: Richard-scale and color sonographic images of the bilateral kidneys and bladder where obtained in transverse and longitudinal planes. FINDINGS: RIGHT KIDNEY: 9.6 cm in length , cortical thickness 1.7 cm. Cysts: None Solid masses: None Stones: None Hydronephrosis: None Echogenicity: Normal renal cortical echogenicity. LEFT KIDNEY: 11 cm in length, cortical thickness 2.1 cm. Cysts: None Solid masses: None Stones: None Hydronephrosis: None Echogenicity: Normal renal cortical echogenicity. Bladder: Unremarkable. Right and left ureteral jets are identified. Prostate: 3.2 x 3.1 x 5.3 cm, estimated volume 26 cc CONCLUSION: Unremarkable sonographic appearance of the kidneys. Dictated by: Jayy Li M.D. on 11/08/2017 at 14:30 Electronically approved by: Jayy Li M.D. on 11/08/2017 at 14:30 Dictated By: JAYY LI MD 143 Transcribed By: PRISCILA on 11/08/17 143 COPY TO: MILTON LITTLE MD CHEST SINGLE (PORTABLE) [place] [address] Patient Name: JHOAN JAY MR #: [id number] : 1930 Age/Sex: 87/M Req #: [id number] Adm Physician: Ordered by: ISHA LLANES MD Report #: [id number] Location: ER Room/Bed: Procedure: [id number] DX/CHEST SINGLE (PORTABLE) Exam Date: Exam Time: REPORT STATUS: Signed Portable chest x-ray CPT code 46938 INDICATION: Fall COMPARISON: None FINDINGS: Frontal view of the chest obtained at 1433 hours. There is a lucent rectangle-shaped artifact across the right chest and right mediastinum extending off the edge of the image. The cardiac silhouette is mildly enlarged with cardiac bypass changes. Pacemaker wires terminate in the right atrium and right ventricle.. The pulmonary vascular marking are normal. The lungs demonstrate no mass or infiltrate. An azygos lobe is present. The costophrenic angles are sharp. There is no pneumothorax. The osseous structures are intact. There is a fracture of the first median sternotomy wire counting down. IMPRESSION: 1. Compromised study due to artifact across the right hemithorax and mediastinum. 2. Postoperative changes consistent with cardiac bypass. Pacemaker as described above. Pulmonary hyperinflation. No acute pulmonary process. Signed by: Dr. Oz Farrar MD on 11/06/2017 5:01 PM Dictated By: OZ FARRAR MD 00 Transcribed By : HELLEN on 11/06/171700 COPY TO: ISHA LLANES MD FOOT LEFT COMPLETE [place] [address] Patient Name: JHOAN JAY MR #: [id number] : 1930 Age/Sex: 87/M Req #: [id number] Adm Physician: Ordered by: ISHA LLANES MD Report #: [id number] Location: ER Room/Bed: Procedure: [id number] DX/FOOT LEFT COMPLETE Exam Date: 11/06/17 Exam Time: 1645 REPORT STATUS: Signed Foot complete CPT code: 54212 Indication: Fall 2 days ago Technique: A.P., oblique and lateral views of the left foot obtained. Comparison: None Findings : The area of pain is not indicated or marked. Calcaneus is intact with prominent posterior and small plantar calcaneal spurs. The midfoot is intact. No evidence of displaced fracture or dislocation involving any of the digits. There are surgical clips along the medial malleolus suggestive of vascular surgery. IMPRESSION: No acute traumatic pathology by x-ray. Signed by: Dr. Oz Farrar MD on 11/06/2017 5: 25 PM Dictated By: OZ FARRAR MD 24 Transcribed By: HELLEN on 11/06/171724 COPY TO: ISHA LLANES MD FOOT RIGHT COMPLETE [facility] [address] [place] [address] Patient Name: JHOAN JAY MR #: [id number] : 1930 Age/Sex: 87/M Req #: [id number] Adm Physician: Ordered by: ISHA LLANES MD Report #: [id number] Location: ER Room/Bed: Procedure: [id number] DX/FOOT RIGHT COMPLETE Exam Date: 11/06/17 Exam Time: 1645 REPORT STATUS: Signed Foot complete CPT code: 25895 Indication: Fall 2 days ago Technique: A.P., oblique and lateral views of the right foot obtained. Comparison: None Findings: The area of pain is not indicated or marked. Calcaneus is intact with small posterior and plantar spurs. The midfoot is intact. There is a fracture through the tibial corner of the base of the proximal phalanx of the great toe extending to the articular surface. No significant displacement of the fracture fragments. The remainder of the digits are intact. No radiopaque foreign bodies in the soft tissues. There are atherosclerotic calcifications of the arterial structures. IMPRESSION: Fracture of the proximal phalanx of the first digit as described above. Signed by: Dr. Oz Farrar MD on 11/06/2017 5:29 PM Dictated By : OZ FARRAR MD 28 COPY TO: ISHA LLANES MD CT BRAIN WO [facility] [address] [place] [address] Patient Name: JHOAN JAY MR #: [id number] : 1930 Age/Sex: 87/M Req # : [id number] Adm Physician: Ordered by: ISHA LLANES MD Report #: [id number] Location: ER Room/Bed: Procedure: [id number] CT/CT BRAIN WO Exam Date: 11/06/17 Exam Time: 1620 REPORT STATUS: Signed Examination: CT BRAIN WITHOUT CONTRAST History: Fall. Head injury. Comparison studies:None Technique: Axial images were obtained from the skull base to the vertex. Coronal and sagittal images reconstructed from the axial data. Intravenous contrast: None Findings: Scalp: No abnormalities. Bones: No fractures, blastic or lytic lesions. Brain sulci: Moderate volume loss for age. Ventricles: No hydrocephalus. Extra-axial space: No abnormalities. Parenchyma: There are confluent areas of hypoattenuation in the periventricular and subcortical white matter, nonspecific. No masses or hemorrhage or acute cortical-based infarct. There is a cortical-based area of hypoattenuation involving the lingual gyrus of the right occipital lobe. Sellar/ suprasellar region: No abnormalities. Craniocervical junction: Patent foramen magnum. No Chiari one malformation. Incidental findings: Atherosclerotic calcification of the cavernous and supraclinoid internal carotid arteries. Impression: 1. No acute intracranial abnormalities. 2. Moderate chronic microvascular ischemic change and volume loss. 3. 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 Signed by: Dr. Marie Ferraro M.D. on 11/06/2017 6:01 PM Dictated By: MARIE JONES MD 00 Transcribed By: HELLEN on 1800 COPY TO: ISHA LLANES MD CT CERVICAL SPINE WO [place] [address] Patient Name: JHOAN JAY MR #: [id number] : 1930 Age/Sex: 87/M Req #: [id number] Adm Physician: Ordered by: ISHA LLANES MD Report #: [id number] Location: ER Room/Bed: Procedure: [id number] CT/CT CERVICAL SPINE WO Exam Date: 11/06/17 Exam Time: 1620 REPORT STATUS: Signed Examination: CT CERVICAL SPINE WITHOUT CONTRAST. HISTORY:Neck pain. Fall. COMPARISON: None. TECHNIQUE: Multidetector helical axial images were obtained without contrast from the foramen magnum to T1. Coronal and sagittal reformatted images were done. Bone and soft tissue windows were evaluated. FINDINGS : Alignment:Straightening of normal lordosis. Vertebrae: Normal height and density. No acute fracture, infection or neoplasm. Disc space heights: Normal height. Caliber of spinal canal: Developmentally normal. Posterior fossa and craniocervical junction: Foramen magnum patent. No Chiari 1 malformation. Soft tissues: No abnormality. Degenerative changes: Severe degenerative narrowing at the C1-C2 joint. Severe right facet arthropathy from C2 through C7 and mild left facet arthropathy at the same levels. Severe right foraminal narrowing at C2-C3, moderate right foraminal narrowing at C3-C4, C4-C5. The cervical levels demonstrate no disc bulge/ herniation or canal stenosis. Additional findings: Fluid in the right azygos fissure. IMPRESSION: 1. No acute abnormalities. 2. Degenerative changes, as above. 3. Fluid within the azygos fissure (right lung). Signed by: Dr. Marie Ferraro M.D. on 11/06/2017 6:12 PM Dictated By: MARIE JONES MD 11 Transcribed By: HELLEN on 11/06/171811 COPY TO: ISHA LLANES MD CT LUMBAR SPINE WO [place] [address] Patient Name: JHOAN JAY MR #: [id number] : 1930 Age/Sex: 87/M Req #: [id number] Adm Physician: Ordered by: ISHA LLANES MD Report #: [id number] Location: ER Room/Bed: Procedure: [id number] CT/CT LUMBAR SPINE WO Exam Date: 11/06/17 Exam Time: 1620 REPORT STATUS: Signed Examination: CT LUMBAR SPINE WITHOUT CONTRAST History: Fall. Back pain. Comparison studies: None Technique: Axial images were obtained through the lumbar spine from L1. Coronal and sagittal reconstructions obtained from the axial data. Intravenous contrast: None Findings: The usual 5 non-rib bearing lumbar vertebral bodies are present. Alignment: Normal lordosis. No scoliosis. Soft tissues: Atherosclerotic calcification of the abdominal aorta and its branches. Paraspinal muscles: Mild fatty atrophy. Sacroiliac joints: Severe degenerative changes. Vertebrae: No fractures, infection or neoplasm. Degenerative changes: L1-L2: Diffuse disc bulge and mild bilateral facet arthropathy. No canal or foraminal stenosis. L2-L3: Diffuse disc bulge, ligamentum flavum thickening and bilateral facet arthropathy result in severe canal stenosis and mild bilateral neural foraminal narrowing . L3-L4: Diffuse disc bulge, ligamentum flavum thickening and bilateral facet arthropathy results in severe canal stenosis and mild left neural foraminal narrowing. No right foraminal narrowing. L4-L5: Diffuse disc bulge, mild ligamentum flavum thickening and bilateral facet arthropathy result in mild bilateral neural foraminal narrowing and mild canal stenosis. L5-S1: Diffuse disc bulge and the lateral facet arthropathy result in mild bilateral neural foraminal narrowing. No canal stenosis IMPRESSION: 1. No acute abnormalities. 2. Degenerative changes, as above. Signed by: Dr. Marie Ferraro M.D. on 11/06/2017 6:16 PM Dictated By: MARIE JONES MD 15 Transcribed By: HELLEN on 11/06/171815 COPY TO: ISHA LLANES MD CT PELVIS WO [place] [address] Patient Name: JHOAN JAY MR #: [id number] : 1930 Age/Sex: 87/M Req # : [id number] Adm Physician: Ordered by: ISHA LLANES MD Report #: [id number] Location: ER Room/Bed: Procedure: [id number] CT/CT PELVIS WO Exam Date: 11/06/17 Exam Time: 1620 REPORT STATUS: Signed CT Pelvis Without IV Contrast INDICATION: Fall. TECHNIQUE: 5 mm collimation axial images obtained from the iliac crests to the symphysis pubis. No intravenous contrast was administered. COMPARISON: CT lumbar spine performed at the same time. Findings: Bowel: Small Bowel: Visualized portions are normal in diameter with normal wall thickness. Large Bowel: Visualized portions are normal in diameter with normal wall thickness. Appendix: Not visualized and may be absent or collapsed. Bladder: Under distended. No ureteral dilatation. The prostate gland measures 3.6 x 4.9 cm in the axial plane. There are calcifications of the vas deferens.. Lymph Nodes: No lymphadenopathy. No free fluid or fluid collection. There are diffuse atherosclerotic calcifications of the distal aorta and iliac arteries. Bones: Degenerative changes of the spine. No diastases of the pubic symphysis or sacroiliac joints. The hips are intact and normal in morphology. Soft tissues: There is a fat-containing left inguinal hernia. The left gluteus taylor is prominent compared to the right with overlying subcutaneous inflammation. An intramuscular hematoma is suspected. IMPRESSION: 1. Intramuscular hematoma of the left gluteus taylor. No evidence of osseous injury. 2. Intraperitoneal findings as described above. Signed by: Dr. Oz Farrar MD on 11/06/2017 6:27 PM Dictated By: OZ FARRAR MD 26 Transcribed By: HELLEN on 11/06/171826 COPY TO: ISHA LLANES MD
--- NOTE | 2017-12-15 14:53 | Diagnostic Imaging Report ---
Exam: Head CT without contrast History: Altered mental status, CVA Comparison studies: Head CT 11/06/2017 Technique: Axial images were obtained from the skull base to the vertex. Coronal and sagittal images reconstructed from the axial data. Intravenous contrast: None Findings: Scalp: No abnormalities. Bones: No fractures, blastic or lytic lesions. Brain sulci: Moderately prominent. Ventricles: Moderate postvoid dilatation. No hydrocephalus. Extra-axial spaces: No masses, no fluid collection. Parenchyma: No mass, acute hemorrhage or acute cortical vascular insults. There is a chronic cortical insult with encephalomalacia and gliosis along the lingual gyrus of the right occipital lobe in the right [employer] territory. A few scattered and confluent hypodensities in the supratentorial white matter are nonspecific but most compatible with chronic small vessel ischemic changes. There are small chronic lacunar infarcts in the right lateral thalamus and posterior right putamen. Focal hypodensity along the posterior left putamen may represent lacunar infarct or prominent perivascular space. Sellar/suprasellar region: No abnormalities. Craniocervical junction: Patent foramen magnum. No Chiari one malformation. Incidental findings: Atherosclerotic calcifications in the carotid siphons.. IMPRESSION: No acute intracranial abnormalities. Chronic findings: 1. Moderate generalized volume loss. 2. Moderate chronic microvascular ischemic changes. 3. Chronic right inferior occipital insult ([employer] territory). 4. Chronic lacunar infarcts as described. Signed by: Dr. Brenton Miles M.D. on 12/15/2017 2:49 PM
[2017-12-15 15:32] LABS: BASOPHILS # (AUTO) 0.1 (0.0-0.1); BASOPHILS % 0.5 % (0.0-1.0); EOSINOPHILS # (AUTO) 0.2 (0.0-0.4); HEMOGLOBIN 15.1 g/dL (14.0-18.0); LYMPHOCYTES # (AUTO) 1.7 (1.0-3.2); LYMPHOCYTES % 17.5 % (18.0-39.1); MEAN CORPUSCULAR HEMOGLOBIN 32.9 pg (28-32); MEAN CORPUSCULAR HGB CONC 32.8 g/dL (31-35); MEAN CORPUSCULAR VOLUME 100.2 fL (81-99); MONOCYTES # (AUTO) 0.7 (0.2-0.8); MONOCYTES % 6.6 % (4.4-11.3); NEUTROPHILS # (AUTO) 7.2 (2.1-6.9); NEUTROPHILS % 73.2 % (38.7-80.0); PLATELET COUNT 220 x10e3/uL (140-360); RED BLOOD COUNT 4.59 x10e6/uL (4.3-5.7); RED CELL DISTRIBUTION WIDTH 14.1 % (11.7-14.4)
[2017-12-15 15:41] LABS: INR 0.92; PROTHROMBIN TIME 12.8 seconds (11.9-14.5)
[2017-12-15 15:42] LABS: PARTIAL THROMBOPLASTIN TIME 29.2 seconds (23.8-35.5)
[2017-12-15 15:51] LABS: ALBUMIN 3.6 g/dL (3.5-5.0); ALBUMIN/GLOBULIN RATIO 0.9 (0.8-2.0); ANION GAP 15.1 mmol/L (8-16); CALCIUM 9.8 mg/dL (8.4-10.2); CREATININE, SERUM 1.68 mg/dL (0.72-1.25); POTASSIUM 4.1 mmol/L (3.5-5.1)
[2017-12-15 15:57] LABS: CREATINE KINASE MB 1.2 ng/mL (0.00-5.00)
== END 2017-12-15 18:06 ==
LOC: ER 13:52
DX: G20 Parkinson's disease (principal); F02.81 Dementia in other diseases classified elsewhere, unspecified severity, with behavioral disturbance; Z86.73 Personal history of transient ischemic attack (TIA), and cerebral infarction without residual deficits
CPT/HCPCS: 36415; 70450; 80053; 82550; 82553; 84484; 85025; 85610; 85730; 93005; 99284